=== PATIENT | female | born 1945 | race Caucasian/White ===

== ENCOUNTER → 2017-01-20 | Outpatient (CLI) | payer MEDICARE ==
[~2017-01-20] MED LIST: IV NORMAL SALINE 250ML 250 ML ONE
[2017-01-20 11:30] VITALS: BP 124/65
[2017-01-20 11:43] LABS: HEMATOCRIT 24.2 % (36.0-47.0)
[2017-01-20 11:47] LABS: HEMOGLOBIN 6.5 g/dL (12.0-15.5)
[2017-01-20 12:45] VITALS: BP 126/58
[2017-01-20 13:20] VITALS: BP 119/61
[2017-01-20 14:10] VITALS: BP 116/67
[2017-01-20 15:10] VITALS: BP 126/70
[2017-01-20 16:07] VITALS: BP 132/73
== END | disposition home or self-care (01) ==
LOC: OPS 11:18
PROVIDERS: ATTEND Family Medicine
DX: D50.9 Iron deficiency anemia, unspecified (principal)
CPT/HCPCS: 36430; 85014; 85018; 86850; 86900; 86901; 86920; P9016

== ENCOUNTER 2017-12-14 16:24 | Inpatient (IN) | payer MEDICARE ==
[~2017-12-14] VITALS: Ht 160 cm; Wt 70.1 kg
[2017-12-14 16:59] VITALS: BP 147/79
[2017-12-14] MEDS ORDERED: diphenhydrAMINE HCL 25 MG CAPSULE PO PRN (17:00)
[2017-12-14] MEDS ORDERED: ELECTROLYTE (NON-ICU) PROTOCOL MC PRN (17:00)
[2017-12-14] MEDS ORDERED: PROCHLORPERAZINE 10 MG/2 ML VIAL. IV PRN (17:00)
[2017-12-14] MEDS ORDERED: PROMETHAZINE 12.5 MG in IV NORMAL SALINE 50ML 50 ML IV PRN (17:00)
[2017-12-14] MEDS ORDERED: diphenhydrAMINE 50 MG/ML VIAL IV PRN (17:00)
[2017-12-14] MEDS ORDERED: 0.9 % SODIUM CHLORIDE 10 ML DISP.SYRIN. IV PRN (17:00)
[2017-12-14] MEDS ORDERED: CALCIUM CARBONATE 500 MG TAB.CHEW PO PRN (17:00)
[2017-12-14] MEDS ORDERED: ONDANSETRON PF 4 MG/2 ML VIAL. IV PRN (17:00)
[2017-12-14] MEDS ORDERED: ACETAMINOPHEN 325 MG TABLET PO PRN (17:00)
[2017-12-14] MEDS ORDERED: FOSFOMYCIN TROMETHAMINE 3 GM PACKET PO ONE (17:30)
[2017-12-14] MEDS ORDERED: HYDR50TA6 PO (17:50)
[2017-12-14] MEDS: POTASSIUM CHLORIDE 10MEQ 100 ML IV SCH ×3 (18:15→21:22)
--- NOTE | 2017-12-14 18:55 | EKG ---
[address] [address] Test Date: 2017-12-14 Test Time: 18:29:54 Pat Name: MARCELA PENA Department: Room: 122 A Gender: F [employer] Expert: DEBBIE : [id number] Requested By: MICHAEL CRANDALL Order Number: [id number] Reading MD: Measurements Intervals [place] Rate: 75 P: 3 GA: 192 QRS: -21 QRSD: 86 T: 52 QT: 402 QTc: 452 Interpretive Statements SINUS RHYTHM LEFTWARD AXIS NO SPECIFIC ECG ABNORMALITIES RI6.01 No previous ECG available for comparison
[2017-12-14 19:25] VITALS: BP 125/79
[2017-12-14] MEDS: DOCUSATE SODIUM 100 MG CAPSULE PO SCH (21:00)
[2017-12-14 22:57] VITALS: BP 115/74
[2017-12-15] MEDS: POTASSIUM CHLORIDE 10MEQ 100 ML IV SCH (00:21)
[2017-12-15 04:51] VITALS: BP 104/64
[2017-12-15 06:59] LABS: BASO # 0.1 x10^3/uL (0.0-0.2); BASO % 1 % (0-3); EOS # 0.4 x10^3/uL (0.0-0.7); EOS % 5 % (0-3); HEMATOCRIT 33.6 % (36.0-47.0); HEMOGLOBIN 10.5 g/dL (12.0-15.5); LYMPH # 1.9 x10^3/uL (1.0-4.8); LYMPH % 22 % (24-48); MEAN CORPUSCULAR HEMOGLOBIN 22 pg (25-35); MEAN CORPUSCULAR HGB CONC 31 g/dL (31-37); MEAN CORPUSCULAR VOLUME 72 fL (79-100); MONO # 0.8 x10^3/uL (0.0-1.1); MONO % 9 % (0-9); NEUT # 5.5 x10^3uL (1.8-7.7); NEUT % 63 % (31-73); PLATELET COUNT 298 x10^3/uL (140-400); RED BLOOD COUNT 4.69 x10^6/uL (3.50-5.40); RED CELL DISTRIBUTION WIDTH 19.7 % (11.5-14.5); WHITE BLOOD COUNT 8.7 x10^3/uL (4.0-11.0)
[2017-12-15 07:16] LABS: ALBUMIN 3.3 g/dL (3.4-5.0); CALCIUM 8.7 mg/dL (8.5-10.1); CREATININE 0.9 mg/dL (0.6-1.0); GFR 61.7; MAGNESIUM 1.9 mg/dL (1.8-2.4); POTASSIUM 3.4 mmol/L (3.5-5.1); TOTAL BILIRUBIN 0.5 mg/dL (0.2-1.0); TOTAL PROTEIN 6.7 g/dL (6.4-8.2)
[2017-12-15] MEDS ORDERED: POTASSIUM CHLORIDE 20 MEQ TABLET.ER. PO ONE (08:15)
[2017-12-15] MEDS: DOCUSATE SODIUM 100 MG CAPSULE PO SCH (08:29)
[2017-12-15] MEDS ORDERED: FLU VACC QS2017-18 (36MOS+)/PF 0.5 ML SYRINGE. VAX IM ONE (09:00)
[2017-12-15] MEDS ORDERED: PNEUMOC CONJ VACC 23-VALENT 0.5 ML VIAL. VAX IM ONE (09:00)
[2017-12-15 09:50] LABS: ANISOCYTOSIS SLIGHT; HYPOCHROMIA SLIGHT; MICROCYTOSIS MOD; OVALOCYTES FEW; PLT ESTIMATE ADEQUATE (ADEQUATE); POLYCHROMASIA SLIGHT; STOMATOCYTES OCC; TEAR DROP CELLS OCC
--- NOTE | 2017-12-15 14:45 | SSS ---
ADMIT DATE: 12/15/2017 SHORT STAY SUMMARY DISCHARGE DIAGNOSES: 1. Weakness. 2. Hypokalemia. HISTORY OF PRESENT ILLNESS: This is a very pleasant 72-year-old who was admitted from Dr. Antoine Negron's office after blood work revealed a potassium of 2.8. She was admitted to the hospital and received IV potassium 40 mEq and then 40 mEq p.o. on the day of discharge, her potassium increased to 3.2 and she was feeling absolutely much better. PAST MEDICAL HISTORY: Hypertension, depression, history of ureteral calculus, vitamin D deficiency, osteoporosis, hypochromic microcytic anemia, which is chronic. REVIEW OF SYSTEMS: Complaints fatigue, weight gain, and fatigue with exertion. MEDICATIONS: Hydrochlorothiazide, which has been discontinued. ALLERGIES: CODEINE, ERYTHROMYCIN, . OBJECTIVE: VITAL SIGNS: Blood pressure 115/74, pulse 70, respirations 16, pulse ox % on room air. GENERAL: Pleasant 72-year-old in no acute distress, appears well hydrated. HEENT: Eyes were clear. Tongue was moist. Throat was clear. NECK: Supple. LUNGS: Clear to auscultation. CARDIOVASCULAR: Regular rhythm and rate. ABDOMEN: Soft, nontender. EXTREMITIES: Without edema. There are no twitches or tremors. DIAGNOSTIC STUDIES: EKG is negative. PLAN: Discharge home. Discontinue hydrochlorothiazide. Follow up with Dr. Negron for repeat potassium on Tuesday. Lists of potassium rich and magnesium rich foods were given and to see Dr. Negron. CHUY RUSS DO DR: RADHA/kim JOB#: [id number] / [id number] ANTOINE Diggs MD
== END 2017-12-15 09:30 | disposition home or self-care (01) | DRG 641 ==
LOC: 1 SOUTH 16:44
PROVIDERS: ADMIT Family Medicine; ATTEND Family Medicine
DX: E87.6 Hypokalemia (principal); D50.9 Iron deficiency anemia, unspecified; I10 Essential (primary) hypertension; M81.0 Age-related osteoporosis without current pathological fracture; F32.9 Major depressive disorder, single episode, unspecified; Z87.442 Personal history of urinary calculi; Z88.1 Allergy status to other antibiotic agents; Z88.5 Allergy status to narcotic agent
CPT/HCPCS: 36415; 74176; 80053; 82947; 83735; 85025; 87086; 87186; 90686; 90732; 93005; J3480

== ENCOUNTER → 2017-12-14 | Outpatient (CLI) | payer MEDICARE ==
[2017-01-20 16:07] VITALS: BP 132/73
[~2017-12-14] MED LIST changes: +HYDR50TA6 PO; -IV NORMAL SALINE 250ML 250 ML ONE
[2017-12-14 15:15] LABS: BASO # 0.1 x10^3/uL (0.0-0.2); BASO % 1 % (0-3); EOS # 0.5 x10^3/uL (0.0-0.7); EOS % 3 % (0-3); HEMATOCRIT 38.7 % (36.0-47.0); LYMPH % 13 % (24-48); MEAN CORPUSCULAR HEMOGLOBIN 23 pg (25-35); MEAN CORPUSCULAR HGB CONC 31 g/dL (31-37); MEAN CORPUSCULAR VOLUME 73 fL (79-100); MONO % 7 % (0-9); NEUT # 11.1 x10^3uL (1.8-7.7); NEUT % 76 % (31-73); PLATELET COUNT 378 x10^3/uL (140-400); RED BLOOD COUNT 5.33 x10^6/uL (3.50-5.40); RED CELL DISTRIBUTION WIDTH 20.2 % (11.5-14.5); WHITE BLOOD COUNT 14.7 x10^3/uL (4.0-11.0)
[2017-12-14 15:23] LABS: ALBUMIN 3.9 g/dL (3.4-5.0); CALCIUM 9.2 mg/dL (8.5-10.1); CREATININE 1.2 mg/dL (0.6-1.0); GFR 44.3; TOTAL BILIRUBIN 0.5 mg/dL (0.2-1.0); TOTAL PROTEIN 7.9 g/dL (6.4-8.2)
[2017-12-14 15:27] LABS: POTASSIUM 2.8 mmol/L (3.5-5.1)
--- NOTE | 2017-12-14 15:48 | RAD ---
CT of the abdomen and pelvis without contrast, 12/14/2017: History: Right flank pain Noncontrast scans were obtained utilizing the renal stone protocol. Comparison is made to a study from 11/27/2014. There are 2 small intrarenal calculi in the lower pole of the left kidney. The largest of these measures approximately 7 mm. A 2 cm low-density lesion in the lateral aspect of left kidney is probably a cyst. There is mild bilateral renal cortical scarring. There is no evidence of hydronephrosis. The ureters are nondilated. No ureteral calculus is seen. The partially filled urinary bladder is unremarkable. Multiple well-defined low density hepatic lesions are again seen compatible with simple cysts. The largest of these lies in the left lobe and measures approximately 3 cm. The gallbladder is surgically absent. No pancreatic abnormality is seen. The spleen is of normal size. There is mild aortic calcific plaquing without evidence of any gross. No abdominal or pelvic adenopathy is seen. The uterus is surgically absent. There are scattered colonic diverticula. No paracolonic inflammatory process is seen. The appendix is not dilated. The bowel loops are of normal caliber. No free air or significant free fluid is evident in the abdomen or pelvis. Moderate multilevel degenerative changes are present in the spine. IMPRESSION: 1. Small nonobstructing left intrarenal calculi. 2. No obstructing urinary tract calculus is identified. 3. Small left renal cyst. 4. Multiple hepatic cysts. 5. Colonic diverticulosis. PQRS Compliance Statement: One or more of the following individualized dose reduction techniques were utilized for this examination: 1. Automated exposure control 2. Adjustment of the mA and/or kV according to patient size 3. Use of iterative reconstruction technique
[2017-12-14 22:24] LABS: ANISOCYTOSIS MOD; BURR CELLS FEW; HYPOCHROMIA MOD; MICROCYTOSIS SLIGHT; OVALOCYTES FEW; PLT ESTIMATE ADEQUATE (ADEQUATE); POLYCHROMASIA PRESENT; STOMATOCYTES FEW
== END | disposition home or self-care (01) ==
LOC: CT 14:39
PROVIDERS: ATTEND Family Medicine
DX: N20.0 Calculus of kidney (principal); N28.1 Cyst of kidney, acquired; K76.89 Other specified diseases of liver; K57.30 Diverticulosis of large intestine without perforation or abscess without bleeding; Z90.49 Acquired absence of other specified parts of digestive tract
CPT/HCPCS: 36415; 74176; 80053; 85025